=== PATIENT | female | born 1965 | race Caucasian/White ===

== ENCOUNTER → 2017-06-03 | Outpatient (CLI) | payer OTHER | LOC: CAT 07:31 | DX: Z13.6 Encounter for screening for cardiovascular disorders (principal) ==

== ENCOUNTER → 2017-06-08 | Outpatient (CLI) | payer OTHER ==
[~2017-06-08] MED LIST: EFFEXOR XR75 MG PO; FLEXERIL PO; NABUMETONE 750750 M1 PO; NAPROSYN500 MG PO; PERCOCET 10-321 EACH PO; PERCOCET 7.5-31 EACH PO; PERCOCET PO; PROTONIX40 M1 PO; ZANAFLEX4 MG PO
== END ==
LOC: RAD 14:09 → CAT 14:09
DX: Z12.31 Encounter for screening mammogram for malignant neoplasm of breast (principal); R91.1 Solitary pulmonary nodule; K76.0 Fatty (change of) liver, not elsewhere classified; Z90.49 Acquired absence of other specified parts of digestive tract

== ENCOUNTER → 2017-06-29 | Outpatient (CLI) | payer OTHER | LOC: ULTRA 09:39 | DX: N63.10 Unspecified lump in the right breast, unspecified quadrant (principal); N63.20 Unspecified lump in the left breast, unspecified quadrant ==

== ENCOUNTER → 2017-09-06 | Outpatient (CLI) | payer OTHER | LOC: CAT | DX: K76.0 Fatty (change of) liver, not elsewhere classified (principal); R91.1 Solitary pulmonary nodule; Z98.890 Other specified postprocedural states ==

== ENCOUNTER → 2017-09-20 | Outpatient (CLI) | payer OTHER | LOC: MRI 09:32 | DX: M47.22 Other spondylosis with radiculopathy, cervical region (principal) ==

== ENCOUNTER → 2017-10-07 | Outpatient (CLI) | payer OTHER ==
[~2017-10-07] VITALS: Ht 170.2 cm; Wt 132.5 kg
--- NOTE | ~2017-10-07 | HPC ---
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 She was seen in consultation on 09/23/2017, diagnosed with symptomatic cervical radiculopathy, component of right shoulder pain, given a single cervical epidural injection at that time. She noted 50% improvement at that time, but with ongoing pain in the right shoulder, she followed up with Orthopedics. She did get an MRI of the right shoulder, which noted a partial bursal-sided tear of the supraspinatus insertion fibers. She has tendinosis of the infraspinatus insertion fibers and a subtle anterior inferior labral tear. Orthopedic surgeon did perform a shoulder steroid injection, but also noted that likely some of these findings may be "incidental." While the patient notes some improvement in the shoulder pain with the injection, she still has ongoing cervical radicular pain and most concerningly she has paresthesia continuing into the right hand and fingers, specifically thumb and index. I reviewed the MRI, which did note severe neural foraminal narrowing at C5-C6 corresponding with right C6 radiculopathy and severe narrowing at C6-C7 (right) correlating with the right C7 radicular pain. PHYSICAL EXAMINATION: Vitals noted on EMR; med list reconciled on same. Today, the patient is in a right shoulder immobilizer, has paresthesia going into the thumb and index finger. Strength exam is difficult due to immobilization of the right shoulder. Long discussion with the patient about therapeutic options. Ultimately, I am afraid she will require surgical decompression versus possible ACDF. She has grossly positive Lhermitte's sign with paresthesia going into the right hand with cervical extension. Correlating with diagnostic findings, she does have significant cervical radiculopathy. Symptoms did get at least 50% better with the initial injection. We elected to repeat the injection today. Continue nabumetone 750 b.i.d., tizanidine 4 mg for spasm. I did renew Percocet today, we will increase from 5 to 7.5 mg, dispensed 75 tablets, one tablet 2-3 times a day. The patient cautioned about daytime somnolence, mental acute changes and constipation. We will refer to Neurosurgery for possible more definitive intervention. If, however, she gets 50% relief following this injection, we may consider a third injection in about a month, but we want to await a good deal of time given the fact that she will now have had 2 cervical injections and a shoulder injection within a short period of time. [address] [address] PAIN MANAGEMENT CONSULTATION Name: VANNA CRUZ Room #: REG NANCI Orantes#: [id number] Admission: 10/07/17 Attend Phys: Gordy Salomon DO Discharge: Date of : 61 Report #: [id number] ASSESSMENT: Symptomatic cervical radiculopathy, clinical exam and history. RECOMMENDATIONS: 1. Medication changes as noted above. 2. Referral to Neurosurgery. 3. Cervical epidural injection under fluoroscopy. PROCEDURE: Cervical epidural injection under fluoroscopy. PROCEDURE NOTE: After written and informed consent was obtained including risk of dural puncture, spinal cord trauma, paralysis and increased pain, the patient was taken to the fluoroscopy suite and placed in the prone position, with appropriate abdominal bolstering, neck was flexed, palms under the thighs. Skin was prepped with ChloraPrep. Sterile draping was applied. Skin wheal with 1% Xylocaine was raised. A 22-gauge 3-1/2 inch epidural Tuohy needle was placed via a midline approach at the C7-T1 interspace, advanced under biplanar fluoroscopy using continuous loss of resistance. With appropriate loss of resistance at the expected depth on lateral view, the glass loss of resistance syringe was disconnected. A low volume extension tubing was connected to the needle and a 5 mL syringe. Negative aspiration for cerebrospinal fluid or blood was noted. A 1 mL of Omnipaque was injected which showed spread within the epidural space on biplanar fluoroscopy. This was followed with 80 mg of triamcinolone plus 1 mL of 1.5% preservative Xylocaine. Needle was withdrawn to the interspinous ligament, 0.5 mL of Xylocaine was used to flush the needle. The needle was then completely withdrawn. The area was cleansed. Band-Aid was applied. The patient was allowed to move off the procedure table and ambulated to the recovery room, monitored for an appropriate period of time, discharged in good and stable condition. <ELECTRONICALLY SIGNED> By: Gordy Salomon DO 10/11/17 [id number] Gordy Salomon DO /nt
[2017-10-07 14:38] VITALS: BP 156/78
== END | disposition home or self-care (01) ==
LOC: PAIN 06:32
DX: M54.12 Radiculopathy, cervical region (principal); G89.29 Other chronic pain; M25.511 Pain in right shoulder; Z87.891 Personal history of nicotine dependence; Z79.899 Other long term (current) drug therapy; Z98.890 Other specified postprocedural states; Z79.891 Long term (current) use of opiate analgesic

== ENCOUNTER → 2018-01-31 | Outpatient (CLI) | payer OTHER | LOC: RAD 12:14 | DX: M43.22 Fusion of spine, cervical region (principal); M25.78 Osteophyte, vertebrae ==

== ENCOUNTER → 2018-02-11 | Outpatient (CLI) | payer OTHER | LOC: MRI 07:45 | DX: M47.26 Other spondylosis with radiculopathy, lumbar region (principal); K76.0 Fatty (change of) liver, not elsewhere classified; M51.16 Intervertebral disc disorders with radiculopathy, lumbar region; R91.8 Other nonspecific abnormal finding of lung field; R16.0 Hepatomegaly, not elsewhere classified ==